=== PATIENT | male | born 1985 | race Native Hawaiian/Other Pacific Islander ===

== ENCOUNTER 2016-04-24 20:14 | Emergency (ER) | payer OTHER ==
[~2016-04-24] VITALS: Ht 190.5 cm; Wt 108.9 kg
[2016-04-24 20:43] VITALS: BP 179/95; TEMP 97.8
== END 2016-04-24 20:51 | disposition home or self-care (01) ==
LOC: ED 20:14
PROC: 0HQDXZZ Repair Right Lower Arm Skin, External Approach (ICD-10-PCS; principal; 2016-04-24)
DX: S70.11XA Contusion of right thigh, initial encounter (principal); S51.811A Laceration without foreign body of right forearm, initial encounter; W27.8XXA Contact with other nonpowered hand tool, initial encounter; Y92.098 Other place in other non-institutional residence as the place of occurrence of the external cause
CPT/HCPCS: 99283; J7040

== ENCOUNTER 2020-05-27 21:39 | Emergency (ER) | payer OTHER ==
[~2020-05-27] VITALS: Ht 188 cm; Wt 111.1 kg
[2020-05-27 22:03] VITALS: TEMP 97.2
[2020-05-27 23:39] VITALS: BP 138/94
== END 2020-05-27 23:39 | disposition home or self-care (01) ==
LOC: ED 21:39
DX: S93.491A Sprain of other ligament of right ankle, initial encounter (principal); W10.8XXA Fall (on) (from) other stairs and steps, initial encounter; Y92.098 Other place in other non-institutional residence as the place of occurrence of the external cause
CPT/HCPCS: 96372; 99283; J1885

== ENCOUNTER 2022-08-19 07:05 | Emergency (ER) | payer OTHER ==
[~2022-08-19] VITALS: Ht 188 cm; Wt 108.9 kg
[2022-08-19 07:10] VITALS: BP 154/104; TEMP 98.4
== END 2022-08-19 07:38 | disposition home or self-care (01) ==
LOC: ED 07:05
DX: S81.832A Puncture wound without foreign body, left lower leg, initial encounter (principal); S80.812A Abrasion, left lower leg, initial encounter; W26.8XXA Contact with other sharp object(s), not elsewhere classified, initial encounter
CPT/HCPCS: 90715; 99282